=== PATIENT | male | born 1975 | race Caucasian/White ===

== ENCOUNTER 2017-03-27 03:35 | Emergency (ER) | payer OTHER ==
[2017-03-27] MEDS ORDERED: SODIUM CHLORIDE 0.9% 1,000 ML IV ONE (03:38)
[2017-03-27 03:42] VITALS: RESP 18
--- NOTE | 2017-03-27 03:42 | ED ---
General Adult HPI - General Stated complaint: Syncope, Fall Time Seen by Provider: 03/27/17 03:35 Source: RN notes reviewed - History of Present Illness Initial comments: This is a 41-year-old male who comes to the emergency department today because of syncopal episode. Patient states she was on the toilet when he was having severe gas pains he bent over and the next thing he knows he was on the ground. Patient states he has no headache he denies any neck pain patient denies any numbness or weakness. Patient denies any chest pain palpitations difficulty breathing or shortness of breath. Patient states had diarrhea for approximately 2 weeks. Patient denies any abdominal pain currently patient denies any previous episodes of syncope. Patient states he is bleeding from scalp. Patient does not have a tetanus up-to-date - Related Data Allergies Allergy/AdvReac Type Severity Reaction Status Date / Time No Known Allergies Allergy Verified 03/27/17 03:42 Review of Systems ROS Statement: Those systems with pertinent positive or pertinent negative responses have been documented in the HPI. ROS Other: All systems not noted in ROS Statement are negative. General Exam - General Exam Comments Initial Comments: GENERAL: Patient is well-developed and well-nourished. Patient is nontoxic and well- hydrated and is in no acute distress. ENT: Neck is soft and supple. No significant lymphadenopathy is noted. Oropharynx is clear. Moist mucous membranes. Neck has full range of motion without eliciting any pain. EYES: The sclera were anicteric and conjunctiva were pink and moist. Extraocular movements were intact and pupils were equal round and reactive to light. Eyelids were unremarkable. PULMONARY: Unlabored respirations. Good breath sounds bilaterally. No audible rales rhonchi or wheezing was noted. CARDIOVASCULAR: There is a regular rate and rhythm without any murmurs gallops or rubs. ABDOMEN: Soft and nontender with normal bowel sounds. No palpable organomegaly was noted. There is no palpable pulsatile mass. SKIN: Patient is 2.5 cm scalp laceration to the top of his scalp NEUROLOGIC: Patient is alert and oriented x3. Cranial nerves II through XII are grossly intact. Motor and sensory are also intact. Normal speech, volume and content. Symmetrical smile. MUSCULOSKELETAL: Normal extremities with adequate strength and full range of motion. LYMPHATICS: No significant lymphadenopathy is noted PSYCHIATRIC: Normal psychiatric evaluation. Course Vital Signs 03/27/17 03:38 Temperature 98.9 F Pulse Rate 72 Respiratory 18 Rate Blood Pressure 141/77 O2 Sat by Pulse 99 Oximetry Procedures - Laceration Laceration #1 Consent Obtained: verbal consent Indication: laceration Site: scalp Description: linear Depth: simple, single layer Size of Sutures: other (Aida 3) Patient Tolerated Procedure: well Medical Decision Making - Medical Decision Making EKG shows a normal sinus rhythm at 60 bpm IA interval is 182 QRS is 102 QT interval 388 QTC is 412. Patient's EKG shows no ST segment elevation or depression or T wave abnormalities are noted. - Lab Data Result diagrams: 03/27/17 03:45 03/27/17 03:45 Lab Results 03/27/17 03/27/17 Range/Units 03:45 03:45 WBC 6.5 (3.8-10.6) k/uL RBC 5.15 (4.30-5.90) m/uL Hgb 15.7 (13.0-17.5) gm/dL Hct 47.3 (39.0-53.0) % MCV 91.8 (80.0-100.0) fL MCH 30.6 (25.0-35.0) pg MCHC 33.3 (31.0-37.0) g/dL RDW 12.8 (11.5-15.5) % Plt Count 237 (150-450) k/uL Neutrophils % 51 % Lymphocytes % 39 % Monocytes % 5 % Eosinophils % 2 % Basophils % 0 % Neutrophils # 3.3 (1.3-7.7) k/uL Lymphocytes # 2.6 (1.0-4.8) k/uL Monocytes # 0.3 (0-1.0) k/uL Eosinophils # 0.2 (0-0.7) k/uL Basophils # 0.0 (0-0.2) k/uL Sodium 144 (137-145) mmol/L Potassium 4.4 (3.5-5.1) mmol/L Chloride 107 (98-107) mmol/L Carbon Dioxide 27 (22-30) mmol/L Anion Gap 10 mmol/L BUN 12 (9-20) mg/dL Creatinine 0.80 (0.66-1.25) mg/dL Est GFR (MDRD) Af Amer >60 (>60 ml/min/1.73 sqM) Est GFR (MDRD) Non-Af >60 (>60 ml/min/1.73 sqM) Glucose 109 H (74-99) mg/dL Calcium 8.9 (8.4-10.2) mg/dL Total Bilirubin 0.3 (0.2-1.3) mg/dL AST 29 (17-59) U/L ALT 51 (21-72) U/L Alkaline Phosphatase 86 (38-126) U/L Total Protein 6.7 (6.3-8.2) g/dL Albumin 3.9 (3.5-5.0) g/dL Disposition Clinical Impression: Scalp laceration, Vasovagal syncope, Diarrhea Disposition: HOME SELF-CARE Instructions: Laceration (ED), Acute Diarrhea (ED) Additional Instructions: Staple should come out in 7 days. Referrals: Cristhian Green MD [Primary Care Provider] - 1-2 days Time of Disposition: 05:06
[2017-03-27] MEDS ORDERED: LIDOCAINE/EPINEPHR/TETRACAINE 5 ML BOTTLE TOPICAL ONE ×2 (03:51→03:52)
[2017-03-27 04:15] LABS: Basophils % (A) 0 %; Eosinophils # (A) 0.2 k/uL (0-0.7); Eosinophils % (A) 2 %; HCT 47.3 % (39.0-53.0); HGB 15.7 gm/dL (13.0-17.5); Lymphocytes # (A) 2.6 k/uL (1.0-4.8); Lymphocytes % (A) 39 %; MCH 30.6 pg (25.0-35.0); MCHC 33.3 g/dL (31.0-37.0); MCV 91.8 fL (80.0-100.0); Mean Platelet Volume 6.9; Monocytes # (A) 0.3 k/uL (0-1.0); Monocytes % (A) 5 %; Neutrophils # (A) 3.3 k/uL (1.3-7.7); Neutrophils % (A) 51 %; Platelet Count 237 k/uL (150-450); RBC 5.15 m/uL (4.30-5.90); RDW 12.8 % (11.5-15.5); WBC 6.5 k/uL (3.8-10.6)
[2017-03-27 04:25] LABS: ALT 51 U/L (21-72); AST 29 U/L (17-59); Albumin 3.9 g/dL (3.5-5.0); Alkaline Phosphatase 86 U/L (38-126); Anion Gap 10 mmol/L; Blood Urea Nitrogen 12 mg/dL (9-20); Calcium 8.9 mg/dL (8.4-10.2); Carbon Dioxide 27 mmol/L (22-30); Chloride 107 mmol/L (98-107); Glucose 109 mg/dL (74-99); Potassium 4.4 mmol/L (3.5-5.1); Sodium 144 mmol/L (137-145); Total Bilirubin 0.3 mg/dL (0.2-1.3); Total Protein 6.7 g/dL (6.3-8.2)
[2017-03-27] MEDS ORDERED: DIPHENOX-ATROP 2.5-0.025 MG 1 EACH TAB PO STA (05:00)
[2017-03-27] MEDS ORDERED: DIPH,PERTUS(ACELL)TETVAC-LF 0.5 ML VIAL IM ONE (05:00)
[2017-03-27 05:55] VITALS: BP 110/60; PULSE 67; TEMP 98
== END 2017-03-27 05:55 | disposition home or self-care (01) ==
LOC: EC 03:35
DX: S01.01XA Laceration without foreign body of scalp, initial encounter (principal); R19.7 Diarrhea, unspecified; R55 Syncope and collapse; Z87.891 Personal history of nicotine dependence; Z23 Encounter for immunization; W18.12XA Fall from or off toilet with subsequent striking against object, initial encounter; Y93.89 Activity, other specified; Y92.002 Bathroom of unspecified non-institutional (private) residence as the place of occurrence of the external cause
CPT/HCPCS: 12001; 36415; 80053; 85025; 90471; 90715; 93005; 96360; 99284

== ENCOUNTER 2021-01-02 16:12 | Emergency (ER) | payer OTHER ==
[2021-01-02] MEDS ORDERED: SODIUM CHLORIDE 0.9% 1,000 ML IV ONE (17:02)
[2021-01-02] MEDS ORDERED: IBUPROFEN 800 MG TAB PO STA (17:02)
[2021-01-02] MEDS ORDERED: ONDANSETRON 4 MG/2 ML VIAL IVP STA (17:03)
--- NOTE | 2021-01-02 17:06 | ED ---
General Adult HPI - General Chief complaint: Nausea/Vomiting/Diarrhea Stated complaint: flu symptoms Time Seen by Provider: 01/02/21 16:55 Source: patient, RN notes reviewed Mode of arrival: ambulatory Limitations: no limitations - History of Present Illness Initial comments: This is a well-appearing 45-year-old male, alert and oriented 4, presents to the emergency room with 1 week of nausea vomiting diarrhea and fever. Patient states his has similar symptoms. He states symptoms started on Monday. He has not been vaccinated. He denies any other medical history and denies any medication on a daily basis. -: days(s) (7) Radiation: non-radiation Severity scale (1-10): 3 Quality: aching (body aches) Consistency: constant Improves with: none Associated Symptoms: fever/chills, malaise, nausea/vomiting, other (diarrhea) Treatments Prior to Arrival: none - Related Data Allergies Allergy/AdvReac Type Severity Reaction Status Date / Time No Known Allergies Allergy Verified 01/02/21 16:34 Review of Systems ROS Statement: Those systems with pertinent positive or pertinent negative responses have been documented in the HPI. ROS Other: All systems not noted in ROS Statement are negative. Past Medical History Past Medical History: No Reported History History of Any Multi-Drug Resistant Organisms: None Reported Past Surgical History: No Surgical Hx Reported Past Psychological History: No Psychological Hx Reported Smoking Status: Never smoker Past Alcohol Use History: Occasional Past Drug Use History: None Reported General Exam Limitations: no limitations General appearance: alert, in no apparent distress Head exam: Present: atraumatic, normocephalic, normal inspection Eye exam: Present: normal appearance, EOMI. Absent: scleral icterus, conjunctival injection, periorbital swelling ENT exam: Present: normal exam, normal oropharynx, mucous membranes moist Neck exam: Present: normal inspection, full ROM. Absent: tenderness, meningismus, lymphadenopathy, thyromegaly Respiratory exam: Present: normal lung sounds bilaterally, rales. Absent: respiratory distress, wheezes, rhonchi, stridor, chest wall tenderness, accessory muscle use Cardiovascular Exam: Present: tachycardia GI/Abdominal exam: Present: soft, normal bowel sounds. Absent: distended, tenderness, rigid Extremities exam: Present: normal inspection, full ROM, normal capillary refill. Absent: tenderness, pedal edema, joint swelling, calf tenderness Back exam: Present: normal inspection, full ROM, other (moist). Absent: tenderness, CVA tenderness (R), CVA tenderness (L), rash noted Neurological exam: Present: alert, oriented X3 Psychiatric exam: Present: normal affect, normal mood Skin exam: Present: warm, intact, normal color, other (moist). Absent: rash, cyanosis Course Vital Signs 01/02/21 01/02/21 01/02/21 16:30 18:50 19:05 Temperature 101.4 F H Pulse Rate 106 H 45 L Respiratory 18 18 17 Rate Blood Pressure 124/75 107/72 O2 Sat by Pulse 95 98 Oximetry 01/02/21 21:53 Temperature 98.9 F Pulse Rate 87 Respiratory 18 Rate Blood Pressure 131/80 O2 Sat by Pulse 98 Oximetry - Reevaluation(s) Reevaluation #1: 01/02/21 19:13 Patient had a syncopal episode with IV start. EKG shows normal sinus rhythm. Patient was given a liter of normal saline. Time: 19:00 Reevaluation #2: 01/02/21 21:01 Patient feeling better. He was given crackers and juice. His monoclonal antibodies infusion has completed and he has tolerated it well. Heart rate is 80 Time: 21:01 EKG Findings - EKG Results: EKG: sinus rhythm (Ventricular rate of 80, SC interval 0.194, QRS 0.104, QTC 0.433) Medical Decision Making - Medical Decision Making Patient is covid positive in the emergency room. This is consistent with his symptoms of fever with nausea vomiting and diarrhea for the past week. He states that his also has symptoms. He did have syncopal episode during IV insertion. His EKG shows normal sinus rhythm with ventricular rate of 80. He states he is feeling much better after the IV fluids. patient was given juice and crackers and tolerated them in the emergency room. His vital signs are stable. He also tolerated the monoclonal antibodies without complication. He'll be discharged home to follow up with his primary care doctor as needed. Return to the emergency room with any new or worsening symptoms. Self quarantine for 10 days after symptom onset and 24 hours without a fever. Vitamin C vitamin D and zinc to help improve immune health. - Lab Data Lab Results 01/02/21 Range/Units 18:15 Coronavirus (PCR) Detected A (Not Detectd) Disposition Clinical Impression: COVID-19 Disposition: HOME SELF-CARE Condition: Good Instructions (If sedation given, give patient instructions): Coronavirus Disease 2019 (COVID-19) Additional Instructions: Return to the emergency room with any new or worsening symptoms. Increase your fluid intake. Takes vitamin C, vitamin D, and zinc for improved immune health. Tylenol and/or Motrin as needed for body aches or fevers. Self quarantine for 10 days from symptom onset and 24 hours without a fever. Follow-up with the primary care doctor next week. Is patient prescribed a controlled substance at d/c from ED?: No Referrals: Cristhian Green MD [Primary Care Provider] - 1-2 days
[2021-01-02] MEDS ORDERED: SODIUM CHLORIDE 0.9% 50 ML IVPB ONE (19:30)
[2021-01-02] MEDS ORDERED: BAMLANIVIMAB (EUA) 700 MG, ETESEVIMAB (EUA) 1,400 MG in SODIUM CHLORIDE 0.9% 50 ML IVPB ONE (19:30)
[2021-01-02 21:54] VITALS: BP 131/80; PULSE 87; RESP 18; TEMP 98.9
== END 2021-01-02 21:54 | disposition home or self-care (01) ==
LOC: EC 16:12
DX: U07.1 COVID-19 (principal)
CPT/HCPCS: 99284; 96365; 96366; 96375; 96361; 93005; 87635; J2405; J3490